=== PATIENT | male | born 1990 | race Caucasian/White ===

== ENCOUNTER 2018-04-01 21:56 | Emergency (ER) | payer SELFPAY ==
[~2018-04-01] VITALS: Ht 175.3 cm; Wt 70.0 kg
[2018-04-01 22:43] VITALS: BP 143/63; PULSE 68; RESP 18; TEMP 98.2; O2SAT 98
== END 2018-04-02 01:13 | disposition left against medical advice (07) ==
LOC: NED 21:56
DX: F99 Mental disorder, not otherwise specified (principal)
CPT/HCPCS: 99281